=== PATIENT | female | born 1970 | race Caucasian/White ===

== ENCOUNTER 2017-02-23 13:13 | Emergency (ER) | payer OTHER ==
[~2017-02-23] VITALS: Ht 157.5 cm; Wt 100.0 kg
[~2017-02-23 13:13] MED LIST: AMOXICILLIN/CL875 MG PO; AMOXICILLIN500 MG OR; AMOXICILLIN500 MG PO; AUGMENTIN875TAB PO; BENZONATATE200 MG PO; CEPHALEXIN500 M1 OR; CEPHALEXIN500 M1 PO; CEPHALEXIN500 MG PO; CIPROFLOXACN500 MG PO; DOXYCYCL HYC100 MG PO; FLEXERIL PO; FLEXERIL10 MG PO; FLUARIX QUADRIV1 INJ IM; GABAPENTIN300 MG PO; INDOCIN25 MG PO; LEVOTHYROXIN112 MC1 PO; LEVOTHYROXIN50 MC1 PO; LEVOTHYROXIN88 MC1 PO; LISINOPRIL10 MG PO; MEDDOSEPAK OR; MEDDOSEPAK PO; MELATONIN3 M1 OR; MELOXICAM15 MG PO; MELOXICAM7.5 MG PO; NAPROSYN375 MG PO; NAPROSYN500 MG PO; NO HOME MEDS; NORCO1 TA2 PO; PAROXETINE20 MG PO; PERCOCET 5/325M1 TAB PO; PREVACID30 M3 OR; RISPERDAL0.5 MG PO; ROBITUSSIN AC10 ML OR; TERBINAFINE250 M1 PO; TRAZODONE100 MG PO; ULTRAM50 M1 PO; ULTRAM50 MG OR; VISTARIL25 MG PO; [UNRECOGNIZED DRUG - OTHER]
[2017-02-23] MEDS ORDERED: NAPROXEN DR500 MG PO (15:24)
[2017-02-23] MEDS ORDERED: FLEXERIL PO (15:24)
[2017-02-23 15:30] VITALS: BP 140/86
== END 2017-02-23 15:35 | disposition home or self-care (01) | DRG 552 ==
LOC: ED 13:13
DX: S33.5XXA Sprain of ligaments of lumbar spine, initial encounter (principal); S81.812A Laceration without foreign body, left lower leg, initial encounter; S80.12XA Contusion of left lower leg, initial encounter; W18.30XA Fall on same level, unspecified, initial encounter; W22.8XXA Striking against or struck by other objects, initial encounter; Y93.89 Activity, other specified; Y92.511 Restaurant or cafe as the place of occurrence of the external cause

== ENCOUNTER 2017-10-11 09:58 | Emergency (ER) | payer OTHER ==
[~2017-10-11] VITALS: Ht 157.5 cm; Wt 102.0 kg
[~2017-10-11 09:58] MED LIST changes: +NAPROXEN DR500 MG PO
[2017-10-11] MEDS ORDERED: LEVOTHYROXINE100 MCG PO (10:20)
[2017-10-11] MEDS ORDERED: SERTRALINE HCL50 MG PO (10:20)
[2017-10-11] MEDS ORDERED: AMOXICILLIN500 MG PO (11:50)
[2017-10-11] MEDS ORDERED: ULTRAM50 M1 PO (11:50)
[2017-10-11 12:14] VITALS: BP 138/78
== END 2017-10-11 12:05 | disposition home or self-care (01) | DRG 605 ==
LOC: ED 09:58
DX: S90.111A Contusion of right great toe without damage to nail, initial encounter (principal); M25.474 Effusion, right foot; S90.451A Superficial foreign body, right great toe, initial encounter; W23.1XXA Caught, crushed, jammed, or pinched between stationary objects, initial encounter; Y92.009 Unspecified place in unspecified non-institutional (private) residence as the place of occurrence of the external cause

== ENCOUNTER 2017-11-19 20:02 | Emergency (ER) | payer OTHER ==
[~2017-11-19] VITALS: Ht 157.5 cm; Wt 90.0 kg
[~2017-11-19 20:02] MED LIST changes: +LEVOTHYROXINE100 MCG PO; +NEURONTIN300 MG PO; +SERTRALINE HCL50 MG PO
[2017-11-19] MEDS ORDERED: LEVOTHYROXIN100 MC1 PO (20:34)
[2017-11-19] MEDS ORDERED: ULTRAM50 M1 PO (20:49)
[2017-11-19 20:55] VITALS: BP 149/89
== END 2017-11-19 20:55 | disposition home or self-care (01) | DRG 556 ==
LOC: ED 20:02
DX: M79.1 Myalgia (principal); M19.90 Unspecified osteoarthritis, unspecified site; F99 Mental disorder, not otherwise specified; F17.210 Nicotine dependence, cigarettes, uncomplicated; M25.552 Pain in left hip; M25.512 Pain in left shoulder

== ENCOUNTER 2017-12-20 11:43 | Emergency (ER) | payer OTHER ==
[~2017-12-20] VITALS: Ht 157.5 cm; Wt 105.4 kg
[~2017-12-20 11:43] MED LIST changes: +LEVOTHYROXIN100 MC1 PO
[2017-12-20] MEDS ORDERED: MOTRIN800 MG PO (12:51)
[2017-12-20 13:58] VITALS: BP 134/94
== END 2017-12-20 13:20 | disposition home or self-care (01) | DRG 556 ==
LOC: ED 11:43
DX: M79.1 Myalgia (principal); R11.0 Nausea; R51 Headache

== ENCOUNTER 2018-01-19 15:06 | Emergency (ER) | payer OTHER ==
[~2018-01-19] VITALS: Ht 157.5 cm; Wt 108.6 kg
[~2018-01-19 15:06] MED LIST changes: +MOTRIN800 MG PO
[2018-01-19] MEDS ORDERED: AMOX/K CLAV875 M1 PO (15:45)
[2018-01-19 15:58] VITALS: BP 144/78
[2018-01-20] MEDS ORDERED: AUGMENTIN875TAB PO (11:46)
== END 2018-01-19 16:00 | disposition home or self-care (01) | DRG 605 ==
LOC: ED 15:06
DX: S61.452A Open bite of left hand, initial encounter (principal); W54.0XXA Bitten by dog, initial encounter; Y93.89 Activity, other specified; Y92.007 Garden or yard of unspecified non-institutional (private) residence as the place of occurrence of the external cause

== ENCOUNTER 2018-01-20 11:25 | Emergency (ER) | payer OTHER ==
[~2018-01-20] VITALS: Ht 157.5 cm; Wt 104.0 kg
[~2018-01-20 11:25] MED LIST changes: +AMOX/K CLAV875 M1 PO
[2018-01-20] MEDS ORDERED: AUGMENTIN875TAB PO (11:46)
[2018-01-20 12:40] VITALS: BP 136/84
== END 2018-01-20 12:40 | disposition home or self-care (01) | DRG 950 ==
LOC: ED 11:25
DX: S61.452D Open bite of left hand, subsequent encounter (principal); W54.0XXD Bitten by dog, subsequent encounter

== ENCOUNTER 2018-01-23 06:13 | Emergency (ER) | payer OTHER ==
[~2018-01-23] VITALS: Ht 157.5 cm; Wt 110.8 kg
[2018-01-23 06:20] VITALS: BP 133/87
[2018-01-23] MEDS ORDERED: TRAZODONE HCL100 MG PO (06:28)
== END 2018-01-23 07:26 | disposition home or self-care (01) | DRG 950 ==
LOC: ED 06:13
DX: S61.452D Open bite of left hand, subsequent encounter (principal); W54.0XXD Bitten by dog, subsequent encounter

== ENCOUNTER 2018-02-03 08:58 | Emergency (ER) | payer OTHER ==
[~2018-02-03] VITALS: Ht 157.5 cm; Wt 95.0 kg
[~2018-02-03 08:58] MED LIST changes: +TRAZODONE HCL100 MG PO
[2018-02-03 10:14] VITALS: BP 134/66
== END 2018-02-03 10:44 | disposition home or self-care (01) | DRG 950 ==
LOC: ED 08:58
PROC: 3E0234Z Introduction of Serum, Toxoid and Vaccine into Muscle, Percutaneous Approach (ICD-10-PCS; principal; 2018-02-03)
DX: S61.452D Open bite of left hand, subsequent encounter (principal); W54.0XXD Bitten by dog, subsequent encounter; Z23 Encounter for immunization

== ENCOUNTER 2018-02-14 12:42 | Emergency (ER) | payer OTHER ==
[~2018-02-14] VITALS: Ht 157.5 cm; Wt 100.0 kg
[2018-02-14] MEDS ORDERED: TORADOL PO (13:47)
[2018-02-14 13:55] VITALS: BP 139/77
== END 2018-02-14 13:55 | disposition home or self-care (01) | DRG 605 ==
LOC: ED 12:42
DX: S80.02XA Contusion of left knee, initial encounter (principal); F17.210 Nicotine dependence, cigarettes, uncomplicated; M19.90 Unspecified osteoarthritis, unspecified site; W22.8XXA Striking against or struck by other objects, initial encounter

== ENCOUNTER 2018-02-16 09:04 | Observation (INO) | payer OTHER ==
[~2018-02-16] VITALS: Ht 154.9 cm; Wt 109.8 kg
[~2018-02-16 09:04] MED LIST changes: +TORADOL PO
--- NOTE | 2018-02-16 09:26 | NUR ---
AMBULATORY TO ER ROOM 6, TO BED
[2018-02-16 09:33] LABS: HEMATOCRIT 45.2 % (37.0-47.0); HEMOGLOBIN 15.4 g/dl (12.0-16.0); IMMATURE GRANULOCYTES 0.3 % (0.0-1.0); MEAN CELL VOLUME 94.4 fL CALC (80.0-100.0); MEAN CORPUSCULAR HGB 32.2 pG CALC (26.0-32.0); MEAN CORPUSCULAR HGB CONC 34.1 g/L CALC (32.0-36.0); NEUT# 6.4 thou/uL (2.00-7.15); RED BLOOD COUNT 4.79 mill/uL (4.20-5.60); RED CELL DISTRI WIDTH 13.2 % (11.5-15.5); URINE BILIRUBIN - DIPSTICK NEGATIVE (NEGATIVE); URINE BLOOD DIPSTICK LARGE (NEGATIVE); URINE COLOR YELLOW; URINE GLUCOSE - DIPSTICK NEGATIVE (NEGATIVE); URINE KETONE NEGATIVE (NEGATIVE); URINE LEUK ESTERASE TRACE (NEGATIVE); URINE NITRITE - DIPSTICK NEGATIVE (Negative); URINE PH 5.5 (4.5-8.0); URINE PROTEIN - DIPSTICK TRACE mg/dL (NEG-TRACE); URINE SPECIFIC GRAVITY >=1.030; URINE UROBILINOGEN - DIPSTICK 0.2 E.U./dL (0.2)
[2018-02-16 09:34] LABS: URINE CLARITY SL CLOUDY
--- NOTE | 2018-02-16 09:38 | NUR ---
EKG COMPLETED AND LABS COLLECTED. PT REPORT MIDSTERNAL/EPIGASTRIC PAIN STARTING AT 0400 THIS MORNING WITH 2 EPISODES OF VOMITING. PT DENIES ANY PAIN AT THIS TIME. CALL ZULETA WITHIN REACH, WILL CONTINUE TO MONITOR.
[2018-02-16 09:57] LABS: ALBUMIN 4.4 g/dL (3.2-5.0); ALKALINE PHOSPHATASE 93 u/l (38-126); ANION GAP 17 (6-22 (CALC)); BILIRUBIN, TOTAL 0.6 mg/dL (0.0-1.4); BUN 16 mg/dL (7-17); BUN/CREATININE RATIO 20 (12-20 (CALC)); CARBON DIOXIDE 22 mmol/l (22-30); CHLORIDE 103 mmol/l (95-108); CREATININE 0.8 mg/dL (0.5-1.0); GFR > 60 ML/MIN (>=60 (CALC)); GFR FOR AFR.AMER. > 60 ML/MIN (>=60 (CALC)); LIPASE 130 u/l (23-300); POTASSIUM 4.7 mmol/l (3.5-5.1); SGOT/AST 47 u/l (14-36); SGPT/ALT 43 u/l (9-52); SODIUM 138 mmol/l (137-146); TOTAL PROTEIN 8.9 g/dL (6.3-8.2)
[2018-02-16 09:59] LABS: URINE BACTERIA FEW hpf; URINE SQUAMOUS EPITHELIAL CELL FEW EPI/hpf (0-FEW)
--- NOTE | 2018-02-16 10:28 | NUR ---
MD AT BEDSIDE TO DISCUSS RESULTS AND PLAN OF CARE.
--- NOTE | 2018-02-16 10:35 | NUR ---
PT AWARE OF PENDING ADMISSION. PT DENIES ANY PAIN OR NAUSEA AT THIS TIME. CALL ZULE[facility] WITHIN REACH. PT DRESSED SELF AND TOOK OFF CARDIAC MONIOTR AND BP CUFF. PT AWARE OF NEED TO KEEP THEM ON. PT LAUGHING SAID "YOU KNOW HOW HARD HEADED I AM". CALL ZULETA WITHIN REACH, WILL CONTINUE TO MONITOR.
--- NOTE | 2018-02-16 11:24 | NUR ---
SBAR PRINTED TO FLOOR
--- NOTE | 2018-02-16 11:28 | NUR ---
PT RESTING COMFORTABLY IN STRETCHER IN NAD. PT REPORTS 2/10MIDSTERNAL PAIN AT THIS TIME. VSS. PT TALKING AND LAUGHING WITH FRIEND AND CHANGED BACK INTO GOWN. PT IS AWARE OF PENDING ADMIT AND WAIT TIME. CALL ZULETA WITHIN REACH.
--- NOTE | 2018-02-16 11:41 | NUR ---
REPORT CALLED TO ELVI BRIGGS.
--- NOTE | 2018-02-16 11:47 | NUR ---
Admission Note Report Given to: ELVI HERBERT Transported by: X Wheelchair Stretcher Transported with: X Nurse Transporter X Patent IV O2 Cover Stitch Machine Operator PT TO ROOM 262 IN STABLE CONDITION, BEDSIDE REPORT GIVEN.
--- NOTE | 2018-02-16 11:48 | NUR ---
PT ARRIVED TO FLOOR VIA WHEELCHAIR ACCOMPANIED BY ELVI COLLADO. PT AMBULATES INDEPENDENTLY. STEADY GAIT. REPORTS MILD EPIGASTRIC SORENESS. NO NAUSEA. REPORTING OF CONCERNS ENCOURAGED. CALL LIGHT REVIEWED AND IN REACH. NPO STATUS REINFORCED. PLAN OF CARE DISCUSSED. PT STATES UNDERSTANDING OF INFORMATION.
[2018-02-16 11:50] VITALS: BP 151/80
[2018-02-16 13:05] LABS: TSH, 3RD GENERATION 16.4 uIU/mL (0.47 - 4.68)
[2018-02-16 16:00] VITALS: BP 132/79
--- NOTE | 2018-02-16 16:06 | NUR ---
DR. HANKS IN TO SEE PT.
--- NOTE | 2018-02-16 16:33 | NUR ---
TELE APPLIED PER ORDER.
--- NOTE | 2018-02-16 18:55 | NUR ---
PT RETURNED TO UNIT FROM [facility].
--- NOTE | 2018-02-16 19:20 | NUR ---
Patient decides to leave AMA. Multiple attempts made to ecourage patient to remain here for continued treatment. Explained to patient all risks of leaving against medical advice including . Pt verbalized understanding of all risks. Pt also encouraged to return to [facility] at any time, especially if symptoms continue or become worse. Pt verbalized understanding.
--- NOTE | 2018-02-16 19:25 | NUR ---
Discharge instructions given. Patient verbalizes understanding of same. Discharged in stable condition via Ambulatory to Against Medical Advice with . All belongings sent with pt.
== END 2018-02-16 19:25 | disposition left against medical advice (07) | DRG 392 ==
LOC: ED 09:04 → ED-I 10:21 → ED 11:13 → MS2 11:14
PROVIDERS: Family Medicine; ADMIT Internal Medicine; ATTEND Internal Medicine
DX: R10.13 Epigastric pain (principal); E03.9 Hypothyroidism, unspecified; K80.20 Calculus of gallbladder without cholecystitis without obstruction; F17.210 Nicotine dependence, cigarettes, uncomplicated; F32.9 Major depressive disorder, single episode, unspecified; F41.9 Anxiety disorder, unspecified; M19.90 Unspecified osteoarthritis, unspecified site; J45.909 Unspecified asthma, uncomplicated; G47.33 Obstructive sleep apnea (adult) (pediatric); R01.1 Cardiac murmur, unspecified; R31.9 Hematuria, unspecified; K44.9 Diaphragmatic hernia without obstruction or gangrene
CPT/HCPCS: A9537; G0378; Q9967

== ENCOUNTER 2018-02-21 13:38 | Emergency (ER) | payer OTHER ==
[~2018-02-21] VITALS: Ht 154.9 cm; Wt 95.5 kg
[2018-02-21 14:14] VITALS: BP 134/77
== END 2018-02-21 15:03 | disposition left against medical advice (07) | DRG 951 ==
LOC: ED 13:38 → LWOBS 15:03
DX: Z91.19 Patient's noncompliance with other medical treatment and regimen (principal)

== ENCOUNTER 2018-07-04 10:09 | Emergency (ER) | payer OTHER ==
[~2018-07-04] VITALS: Ht 154.9 cm; Wt 109.0 kg
[2018-07-04 11:34] VITALS: BP 124/67
[2018-07-04] MEDS ORDERED: RID COMPLETE TOP (11:48)
[2018-07-04] MEDS ORDERED: AMOXICILLIN875 MG PO (11:48)
== END 2018-07-04 11:55 | disposition home or self-care (01) ==
LOC: ED 10:09
DX: J02.0 Streptococcal pharyngitis (principal); M19.90 Unspecified osteoarthritis, unspecified site; F41.9 Anxiety disorder, unspecified; F32.9 Major depressive disorder, single episode, unspecified; F17.210 Nicotine dependence, cigarettes, uncomplicated; J02.9 Acute pharyngitis, unspecified; M25.50 Pain in unspecified joint

== ENCOUNTER 2018-07-29 13:14 | Emergency (ER) | payer OTHER ==
[~2018-07-29] VITALS: Ht 154.9 cm; Wt 119.8 kg
[~2018-07-29 13:14] MED LIST changes: +AMOXICILLIN875 MG PO; +RID COMPLETE TOP
[2018-07-29] MEDS ORDERED: PERCOGESI1 PO (14:05)
[2018-07-29 14:09] VITALS: BP 140/85
== END 2018-07-29 14:09 | disposition home or self-care (01) ==
LOC: ED 13:14
DX: G89.29 Other chronic pain (principal); M25.552 Pain in left hip; M19.90 Unspecified osteoarthritis, unspecified site; F41.9 Anxiety disorder, unspecified; F32.9 Major depressive disorder, single episode, unspecified; F17.210 Nicotine dependence, cigarettes, uncomplicated

== ENCOUNTER 2018-08-22 11:58 | Emergency (ER) | payer OTHER ==
[~2018-08-22] VITALS: Ht 154.9 cm; Wt 122.7 kg
[~2018-08-22 11:58] MED LIST changes: +PERCOGESI1 PO
[2018-08-22] MEDS ORDERED: TYLENOL500 MG PO (12:54)
[2018-08-22 13:05] VITALS: BP 148/94
== END 2018-08-22 13:05 | disposition home or self-care (01) ==
LOC: ED 11:58
DX: G89.29 Other chronic pain (principal); M25.561 Pain in right knee

== ENCOUNTER 2018-10-18 17:22 | Emergency (ER) | payer OTHER ==
[~2018-10-18] VITALS: Ht 154.9 cm; Wt 110.0 kg
[~2018-10-18 17:22] MED LIST changes: +AMITRIPTYLIN50 MG PO; +HYDROXYZ HCL25 MG PO; +IBUPROFEN600 MG PO; +LIPITOR80 M1 PO; +TYLENOL500 MG PO
[2018-10-18] MEDS ORDERED: VOLTAREN1%GEL TOP (17:58)
[2018-10-18 19:15] VITALS: BP 155/84
== END 2018-10-18 19:15 | disposition home or self-care (01) ==
LOC: ED 17:22
DX: M25.551 Pain in right hip (principal); R10.31 Right lower quadrant pain; R11.0 Nausea

== ENCOUNTER 2018-10-20 09:22 | Emergency (ER) | payer OTHER ==
[~2018-10-20] VITALS: Ht 154.9 cm; Wt 109.0 kg
[~2018-10-20 09:22] MED LIST changes: +VOLTAREN1%GEL TOP
[2018-10-20 09:56] VITALS: BP 172/84
== END 2018-10-20 09:56 | disposition home or self-care (01) ==
LOC: ED 09:22
DX: G89.29 Other chronic pain (principal); R10.31 Right lower quadrant pain

== ENCOUNTER 2018-11-16 18:28 | Emergency (ER) | payer OTHER ==
[~2018-11-16] VITALS: Ht 154.9 cm; Wt 109.1 kg
[2018-11-16 19:33] LABS: URINE BILIRUBIN - DIPSTICK NEGATIVE (NEGATIVE); URINE BLOOD DIPSTICK MODERATE (NEGATIVE); URINE COLOR YELLOW; URINE GLUCOSE - DIPSTICK NEGATIVE (NEGATIVE); URINE KETONE NEGATIVE (NEGATIVE); URINE NITRITE - DIPSTICK NEGATIVE (Negative); URINE PROTEIN - DIPSTICK 30 mg/dL (NEG-TRACE); URINE SPECIFIC GRAVITY >=1.030; URINE UROBILINOGEN - DIPSTICK 0.2 E.U./dL (0.2)
[2018-11-16 19:35] LABS: URINE LEUK ESTERASE SMALL (NEGATIVE)
[2018-11-16 19:45] LABS: URINE SQUAMOUS EPITHELIAL CELL FEW EPI/hpf (0-FEW)
[2018-11-16 19:57] LABS: HEMATOCRIT 39.3 % (37.0-47.0); HEMOGLOBIN 13.8 g/dl (12.0-16.0); IMMATURE GRANULOCYTES 0.4 % (0.0-5.0); MEAN CELL VOLUME 90.6 fL CALC (80.0-100.0); MEAN CORPUSCULAR HGB 31.8 pG CALC (26.0-32.0); MEAN CORPUSCULAR HGB CONC 35.1 g/L CALC (32.0-36.0); NEUT# 6.58 thou/uL (2.00-7.15); RED BLOOD COUNT 4.34 mill/uL (4.20-5.60); RED CELL DISTRI WIDTH 13.7 % (11.5-15.5)
[2018-11-16 20:10] LABS: ALBUMIN 4.4 g/dL (3.2-5.0); ALKALINE PHOSPHATASE 104 u/l (38-126); AMYLASE 71 u/l (30-110); ANION GAP 13 (6-22 (CALC)); BILIRUBIN, TOTAL 0.6 mg/dL (0.0-1.4); BUN 11 mg/dL (7-17); BUN/CREATININE RATIO 15 (12-20 (CALC)); CARBON DIOXIDE 26 mmol/l (22-30); CHLORIDE 104 mmol/l (95-108); CREATININE 0.7 mg/dL (0.5-1.0); GFR > 60 ML/MIN (>=60 (CALC)); GFR FOR AFR.AMER. > 60 ML/MIN (>=60 (CALC)); LIPASE 105 u/l (23-300); SGOT/AST 34 u/l (14-36); SODIUM 139 mmol/l (137-146); TOTAL PROTEIN 8.3 g/dL (6.3-8.2)
[2018-11-16 20:11] LABS: POTASSIUM 3.5 mmol/l (3.5-5.1)
[2018-11-16] MEDS ORDERED: MIRALAX3350 N1 PO (20:37)
[2018-11-16 21:00] VITALS: BP 147/67
== END 2018-11-16 21:09 | disposition home or self-care (01) ==
LOC: ED 18:28
PROVIDERS: Family Medicine
DX: K59.00 Constipation, unspecified (principal); K80.20 Calculus of gallbladder without cholecystitis without obstruction; R10.11 Right upper quadrant pain; R42 Dizziness and giddiness; R11.0 Nausea; F17.210 Nicotine dependence, cigarettes, uncomplicated; R50.9 Fever, unspecified

== ENCOUNTER 2018-12-14 16:09 | Emergency (ER) | payer OTHER ==
[~2018-12-14] VITALS: Ht 154.9 cm; Wt 115.2 kg
[~2018-12-14 16:09] MED LIST changes: +MIRALAX3350 N1 PO
[2018-12-14] MEDS ORDERED: NEURONTIN600 MG PO (16:22)
[2018-12-14] MEDS ORDERED: PROVENTIL108 MCG/AC IN (17:50)
[2018-12-14] MEDS ORDERED: ZITHROMAX250 MG PO (17:50)
[2018-12-14 18:00] VITALS: BP 158/90
[2018-12-15] MEDS ORDERED: TRAZODONE50 MG PO (11:03)
[2018-12-15] MEDS ORDERED: MOTRIN800 MG PO (11:04)
[2018-12-15] MEDS ORDERED: BUPROPION HCL150 MG PO (11:04)
[2018-12-15] MEDS ORDERED: LEVOTHYROXINE175 MCG PO (11:05)
[2018-12-15] MEDS ORDERED: ATORVASTATIN CA80 MG PO (11:05)
[2018-12-15] MEDS ORDERED: SERTRALINE HCL100 MG PO (11:06)
== END 2018-12-14 18:00 | disposition home or self-care (01) ==
LOC: ED 16:09
DX: J06.9 Acute upper respiratory infection, unspecified (principal); J40 Bronchitis, not specified as acute or chronic; F17.210 Nicotine dependence, cigarettes, uncomplicated; R09.89 Other specified symptoms and signs involving the circulatory and respiratory systems; R05 Cough; R19.7 Diarrhea, unspecified

== ENCOUNTER 2018-12-15 09:23 | Emergency (ER) | payer OTHER ==
[~2018-12-15] VITALS: Ht 154.9 cm; Wt 100.0 kg
[~2018-12-15 09:23] MED LIST changes: +NEURONTIN600 MG PO; +PROVENTIL108 MCG/AC IN; +ZITHROMAX250 MG PO
[2018-12-15] MEDS ORDERED: TRAZODONE50 MG PO (11:03)
[2018-12-15] MEDS ORDERED: BUPROPION HCL150 MG PO (11:04)
[2018-12-15] MEDS ORDERED: MOTRIN800 MG PO (11:04)
[2018-12-15] MEDS ORDERED: ATORVASTATIN CA80 MG PO (11:05)
[2018-12-15] MEDS ORDERED: LEVOTHYROXINE175 MCG PO (11:05)
[2018-12-15] MEDS ORDERED: SERTRALINE HCL100 MG PO (11:06)
[2018-12-15 12:50] VITALS: BP 136/74
== END 2018-12-15 12:50 | disposition home or self-care (01) ==
LOC: ED 09:23
DX: J06.9 Acute upper respiratory infection, unspecified (principal); R42 Dizziness and giddiness; R55 Syncope and collapse